=== PATIENT | male | born 1955 | race Caucasian/White ===

== ENCOUNTER → 2016-09-30 | Outpatient (REF) | payer OTHER ==
[~2016-09-30] MED LIST: AMBI12.52 PO; ASPI1TAB PO; ASTE0.15; ATOR40TA75 PO; CENTTAB47 PO; LOSA100T36 PO; MONT10TA2 PO; PROB1TAB PO; XYZA5TAB2 PO
[2016-09-30 18:47] LABS: CALCIUM LEVEL 9.9 MG/DL (8.8-10.2); CREATININE FOR GFR 1.57 MG/DL (0.70-1.30); FREE T4 0.8 NG/DL (0.76-1.46); GLOMERULAR FILTRATION RATE 47.9 (>49); POTASSIUM SERUM 4.6 MEQ/L (3.5-5.1)
== END ==
LOC: M SFHCPLAZ 13:22
PROVIDERS: ATTEND Internal Medicine Infectious Disease
DX: R63.5 Abnormal weight gain (principal); B20 Human immunodeficiency virus [HIV] disease; R76.12 Nonspecific reaction to cell mediated immunity measurement of gamma interferon antigen response without active tuberculosis

== ENCOUNTER → 2016-12-23 | Outpatient (REF) | payer OTHER ==
[2016-12-23 14:00] LABS: ALBUMIN 4.2 GM/DL (3.2-5.2); ALBUMIN/GLOBULIN RATIO 1.4 (1.00-1.93); BILIRUBIN,TOTAL 0.8 MG/DL (0.2-1.0); CALCIUM LEVEL 9.4 MG/DL (8.8-10.2); CREATININE FOR GFR 1.41 MG/DL (0.70-1.30); GLOMERULAR FILTRATION RATE 54.2 (>49); POTASSIUM SERUM 4.5 MEQ/L (3.5-5.1); TOTAL PROTEIN 7.2 GM/DL (6.4-8.2)
[2016-12-25 00:20] LABS: Eosinophils 5 % (Not Estab.); HCT 47.3 % (37.5-51.0); HGB 16.3 g/dL (12.6-17.7); Monocytes 8 % (Not Estab.); Neutrophils 49 % (Not Estab.); WBC 6.3 x10E3/uL (3.4-10.8)
[2016-12-26 13:28] LABS: HIV-1 RNAby PCR <20
[2016-12-26 13:29] LABS: Genotype Assay Not Indicated
== END ==
LOC: M SFHCPLAZ 12:07
PROVIDERS: ATTEND Internal Medicine Infectious Disease
DX: B20 Human immunodeficiency virus [HIV] disease (principal); E78.2 Mixed hyperlipidemia

== ENCOUNTER → 2017-07-29 | Outpatient (REF) | payer OTHER ==
[2017-07-29 16:00] LABS: ALBUMIN 4.3 GM/DL (3.2-5.2); ALBUMIN/GLOBULIN RATIO 1.59 (1.00-1.93); ALKALINE PHOSPHATASE 35 U/L (45-117); ALT/SGPT 43 U/L (12-78); ANION GAP 9 MEQ/L (8-16); AST/SGOT 57 U/L (7-37); BILIRUBIN,TOTAL 0.7 MG/DL (0.2-1.0); BLOOD UREA NITROGEN 23 MG/DL (7-18); CALCIUM LEVEL 9.2 MG/DL (8.8-10.2); CARBON DIOXIDE LEVEL 25 MEQ/L (21-32); CHLORIDE LEVEL 108 MEQ/L (98-107); CHOLESTEROL LEVEL 112 MG/DL (<200); CHOLESTEROL RISK RATIO 2.731 (<5); CREATININE FOR GFR 1.44 MG/DL (0.70-1.30); GLOMERULAR FILTRATION RATE 52.7 (>49); GLUCOSE, FASTING 105 MG/DL (70-100); HDL CHOLESTEROL 41 MG/DL (>40); LDL CHOLESTEROL 47.4 MG/DL (<100); NON-HDL-C 71 MG/DL; POTASSIUM SERUM 4.3 MEQ/L (3.5-5.1); SODIUM LEVEL 142 MEQ/L (136-145); TRIGLYCERIDES LEVEL 118 MG/DL (<150)
[2017-07-29 16:39] LABS: ESTIMATED AVERAGE GLUCOSE 131 MG/DL (60-110); HEMOGLOBIN A1c 6.2 %
[2017-07-29 18:11] LABS: AMORPHOUS SEDIMENT SMALL (NEGATIVE); APPEARANCE, URINE HAZY (CLEAR); BACTERIA, URINE AUTO NEGATIVE (NEGATIVE); BILIRUBIN, URINE AUTO NEGATIVE (NEGATIVE); BLOOD, URINE BLOOD NEGATIVE (NEGATIVE); CALCIUM OXALATE CRYSTALS SMALL; COLOR, URINE YELLOW (YELLOW); GLUCOSE, URINE (UA) AUTO NEGATIVE (NEGATIVE); KETONE, URINE AUTO NEGATIVE (NEGATIVE); LEUKOCYTE ESTERASE, URINE AUTO NEGATIVE (NEGATIVE); MUCUS, URINE SMALL (NEGATIVE); NITRITE, URINE AUTO NEGATIVE (NEGATIVE); PROTEIN, URINE AUTO NEGATIVE (NEGATIVE); RBC, URINE AUTO 0 /HPF (0-3); SPECIFIC GRAVITY URINE AUTO 1.012 (1.002-1.035); SQUAMOUS EPITHELIAL CELL UR AU 0 /HPF (0-6); UROBILINOGEN, URINE AUTO 0.2 mg/dL (0.0-2.0); WBC, URINE AUTO 1 /HPF (0-3)
[2017-07-30 11:06] LABS: HEPATITIS C VIRUS ABY INDEX < 0.0 INDEX (<0.8)
== END ==
LOC: M SFHCPLAZ 13:12
DX: B20 Human immunodeficiency virus [HIV] disease (principal); E78.2 Mixed hyperlipidemia; N18.3 Chronic kidney disease, stage 3 (moderate)
CPT/HCPCS: 80053

== ENCOUNTER → 2018-01-06 | Outpatient (REF) | payer OTHER ==
[2018-01-06 21:50] LABS: ALBUMIN 4.2 GM/DL (3.2-5.2); ALBUMIN/GLOBULIN RATIO 1.45 (1.00-1.93); ALKALINE PHOSPHATASE 39 U/L (45-117); ALT/SGPT 43 U/L (12-78); ANION GAP 9 MEQ/L (8-16); AST/SGOT 31 U/L (7-37); BILIRUBIN,TOTAL 0.9 MG/DL (0.2-1.0); BLOOD UREA NITROGEN 27 MG/DL (7-18); CALCIUM LEVEL 9.3 MG/DL (8.8-10.2); CARBON DIOXIDE LEVEL 28 MEQ/L (21-32); CHLORIDE LEVEL 103 MEQ/L (98-107); CREATININE FOR GFR 1.75 MG/DL (0.70-1.30); GLUCOSE, FASTING 123 MG/DL (70-100); POTASSIUM SERUM 4.4 MEQ/L (3.5-5.1); SODIUM LEVEL 140 MEQ/L (136-145); TOTAL PROTEIN 7.1 GM/DL (6.4-8.2)
[2018-01-06 23:42] LABS: ESTIMATED AVERAGE GLUCOSE 123 MG/DL (60-110); HEMOGLOBIN A1c 5.9 %
[2018-01-10 00:06] LABS: % CD8 Pos Lymph 45.1 % (12.0-35.5); %CD4 Pos Lymphs 33.2 % (30.8-58.5); ABS Eosinophils 0.1 x10E3/uL (0.0-0.4); ABS Lymphs 2.3 x10E3/uL (0.7-3.1); ABS Monocytes 0.4 x10E3/uL (0.1-0.9); ABS Neutophils 3.6 x10E3/uL (1.4-7.0); Abs CD4 Helper 764 /uL (359-1519); Abs CD8 Suppres 1037 /uL (109-897); CD4/CD8 Ratio 0.74 (0.92-3.72); Eosinophils 2 % (Not Estab.); HCT 48.5 % (37.5-51.0); HIV-1 RNA PCR QUANT 2 LC550285 <20 copies/mL (.); Immature Grans 0 % (Not Estab.); Lymphocytes 35 % (Not Estab.); MCH 30.9 pg (26.6-33.0); MCV 94 fL (79-97); Monocytes 6 % (Not Estab.); Neutrophils 56 % (Not Estab.); Platelets 172 x10E3/uL (150-379); RBC 5.17 x10E6/uL (4.14-5.80); RDW 15.1 % (12.3-15.4); WBC 6.5 x10E3/uL (3.4-10.8)
== END ==
LOC: M SFHCPLAZ 13:14
DX: B20 Human immunodeficiency virus [HIV] disease (principal); E78.2 Mixed hyperlipidemia

== ENCOUNTER → 2018-07-30 | Outpatient (REF) | payer OTHER ==
[~2018-07-30] MED LIST changes: -ASPI1TAB PO; +ASPI81TA26 PO; -LOSA100T36 PO; +LOSA100T50 PO
[2018-07-30 16:56] LABS: ALBUMIN 4.5 GM/DL (3.2-5.2); BILIRUBIN,TOTAL 0.7 MG/DL (0.2-1.0); CALCIUM LEVEL 9.7 MG/DL (8.8-10.2); CHOLESTEROL RISK RATIO 3.476 (<5); POTASSIUM SERUM 4.3 MEQ/L (3.5-5.1); TOTAL PROTEIN 7.1 GM/DL (6.4-8.2)
[2018-07-30 17:18] LABS: APPEARANCE, URINE CLOUDY (CLEAR); BACTERIA, URINE AUTO NEGATIVE (NEGATIVE); BILIRUBIN, URINE AUTO NEGATIVE (NEGATIVE); BLOOD, URINE BLOOD NEGATIVE (NEGATIVE); COLOR, URINE STRAW (YELLOW); GLUCOSE, URINE (UA) AUTO NEGATIVE (NEGATIVE); KETONE, URINE AUTO NEGATIVE (NEGATIVE); LEUKOCYTE ESTERASE, URINE AUTO NEGATIVE (NEGATIVE); NITRITE, URINE AUTO NEGATIVE (NEGATIVE); PROTEIN, URINE AUTO NEGATIVE (NEGATIVE); RBC, URINE AUTO 0 /HPF (0-3); SPECIFIC GRAVITY URINE AUTO 1.011 (1.002-1.035); SQUAMOUS EPITHELIAL CELL UR AU 0 /HPF (0-6); URIC ACID CRYSTALS LARGE; UROBILINOGEN, URINE AUTO 0.2 mg/dL (0.0-2.0); WBC, URINE AUTO 1 /HPF (0-3)
[2018-07-30 17:23] LABS: HEMOGLOBIN A1c 5.7 %
[2018-08-04 00:06] LABS: % CD8 Pos Lymph 46.6 % (12.0-35.5); %CD4 Pos Lymphs 30.6 % (30.8-58.5); ABS Eosinophils 0.2 x10E3/uL (0.0-0.4); ABS Lymphs 2.2 x10E3/uL (0.7-3.1); ABS Monocytes 0.5 x10E3/uL (0.1-0.9); ABS Neutophils 4.4 x10E3/uL (1.4-7.0); Abs CD4 Helper 673 /uL (359-1519); Abs CD8 Suppres 1025 /uL (109-897); CD4/CD8 Ratio 0.66 (0.92-3.72); Eosinophils 3 % (Not Estab.); HCT 48.7 % (37.5-51.0); HGB 15.9 g/dL (13.0-17.7); HIV-1 RNA PCR QUANT 2 LC550285 <20 copies/mL (.); Immature Grans 0 % (Not Estab.); Lymphocytes 30 % (Not Estab.); MCH 31.1 pg (26.6-33.0); MCHC 32.6 g/dL (31.5-35.7); MCV 95 fL (79-97); Monocytes 7 % (Not Estab.); Neutrophils 60 % (Not Estab.); Platelets 181 x10E3/uL (150-379); RBC 5.11 x10E6/uL (4.14-5.80); RDW 14.3 % (12.3-15.4); WBC 7.3 x10E3/uL (3.4-10.8)
== END ==
LOC: M SFHCPLAZ 11:35
PROVIDERS: ATTEND Internal Medicine Infectious Disease
DX: B20 Human immunodeficiency virus [HIV] disease (principal); E78.2 Mixed hyperlipidemia; R73.02 Impaired glucose tolerance (oral); Z12.5 Encounter for screening for malignant neoplasm of prostate
CPT/HCPCS: 80053; 80061; 81001; 83036; 86360; 87536; G0103

== ENCOUNTER → 2018-12-31 | Outpatient (REF) | payer OTHER ==
[2018-12-31 16:25] LABS: ALBUMIN 4.1 GM/DL (3.2-5.2); BILIRUBIN,TOTAL 0.7 MG/DL (0.2-1.0); CALCIUM LEVEL 9.3 MG/DL (8.8-10.2); CREATININE FOR GFR 1.64 MG/DL (0.70-1.30); GLOMERULAR FILTRATION RATE 45.1 (>49); POTASSIUM SERUM 4.4 MEQ/L (3.5-5.1); TOTAL PROTEIN 6.8 GM/DL (6.4-8.2)
[2018-12-31 16:50] LABS: HEMOGLOBIN A1c 6.1 %
[2019-01-05 00:10] LABS: % CD8 Pos Lymph 47.9 % (12.0-35.5); ABS Eosinophils 0.1 x10E3/uL (0.0-0.4); ABS Monocytes 0.3 x10E3/uL (0.1-0.9); ABS Neutophils 3.5 x10E3/uL (1.4-7.0); Abs CD4 Helper 640 /uL (359-1519); Abs CD8 Suppres 958 /uL (109-897); CD4/CD8 Ratio 0.67 (0.92-3.72); Eosinophils 2 % (Not Estab.); HCT 49.2 % (37.5-51.0); HGB 16.1 g/dL (13.0-17.7); HIV-1 RNA PCR QUANT 2 LC550285 <20 copies/mL (.); Immature Grans 0 % (Not Estab.); Lymphocytes 33 % (Not Estab.); MCH 31.1 pg (26.6-33.0); MCHC 32.7 g/dL (31.5-35.7); MCV 95 fL (79-97); Monocytes 5 % (Not Estab.); Neutrophils 59 % (Not Estab.); Platelets 161 x10E3/uL (150-450); RBC 5.18 x10E6/uL (4.14-5.80); RDW 14.7 % (12.3-15.4); WBC 5.9 x10E3/uL (3.4-10.8)
== END ==
LOC: M SFHCPLAZ 12:29
PROVIDERS: ATTEND Internal Medicine Infectious Disease
DX: B20 Human immunodeficiency virus [HIV] disease (principal); R73.02 Impaired glucose tolerance (oral)

== ENCOUNTER → 2019-09-15 | Outpatient (CLI) | payer OTHER ==
[~2019-09-15] MED LIST changes: -MONT10TA2 PO; +MONT10TA4 PO
[2019-09-15 13:03] LABS: HEMATOCRIT 49.9 % (42.0-52.0); HEMOGLOBIN 16.6 g/dl (13.5-17.5); MEAN CORPUSCULAR HGB CONC 33.3 g/dl (32.0-36.5); MEAN CORPUSCULAR VOLUME 93.3 fl (80.0-96.0); PLATELET COUNT, AUTOMATED 154 10^3/uL (150-450); RED BLOOD COUNT 5.35 10^6/uL (4.30-6.10); WHITE BLOOD COUNT 5.4 10^3/uL (4.0-10.0)
[2019-09-15 13:11] LABS: APPEARANCE, URINE CLEAR (CLEAR); BACTERIA, URINE AUTO NEGATIVE (NEGATIVE); BILIRUBIN, URINE AUTO NEGATIVE (NEGATIVE); BLOOD, URINE BLOOD NEGATIVE (NEGATIVE); COLOR, URINE YELLOW (YELLOW); GLUCOSE, URINE (UA) AUTO NEGATIVE (NEGATIVE); KETONE, URINE AUTO NEGATIVE (NEGATIVE); LEUKOCYTE ESTERASE, URINE AUTO NEGATIVE (NEGATIVE); MUCUS, URINE SMALL (NEGATIVE); NITRITE, URINE AUTO NEGATIVE (NEGATIVE); PROTEIN, URINE AUTO NEGATIVE (NEGATIVE); RBC, URINE AUTO 1 /HPF (0-3); SPECIFIC GRAVITY URINE AUTO 1.011 (1.002-1.035); SQUAMOUS EPITHELIAL CELL UR AU 0 /HPF (0-6); UROBILINOGEN, URINE AUTO 0.2 mg/dL (0.0-2.0); WBC, URINE AUTO 1 /HPF (0-3)
[2019-09-15 13:23] LABS: HEMOGLOBIN A1c 6.3 %
[2019-09-15 13:26] LABS: CALCIUM LEVEL 9.3 MG/DL (8.8-10.2); CREATININE FOR GFR 1.47 MG/DL (0.70-1.30); CREATININE,RANDOM URINE 79.9 MG/DL; GLOMERULAR FILTRATION RATE 51.2 (>49); POTASSIUM SERUM 4.2 MEQ/L (3.5-5.1); TOTAL PROTEIN,RANDOM URINE 6.1 MG/DL (0.0-12.0)
[2019-09-15 13:32] LABS: ALBUMIN 4.2 GM/DL (3.2-5.2); BILIRUBIN,TOTAL 0.9 MG/DL (0.2-1.0); CALCIUM LEVEL 9.6 MG/DL (8.8-10.2); CREATININE FOR GFR 1.53 MG/DL (0.70-1.30); GLOMERULAR FILTRATION RATE 48.9 (>49); POTASSIUM SERUM 4.3 MEQ/L (3.5-5.1); TOTAL PROTEIN 7.3 GM/DL (6.4-8.2)
[2019-09-21 15:14] LABS: % CD8 Pos Lymph 45.2 % (12.0-35.5); %CD4 Pos Lymphs 33.3 % (30.8-58.5); ABS Eosinophils 0.2 x10E3/uL (0.0-0.4); ABS Lymphs 1.9 x10E3/uL (0.7-3.1); ABS Monocytes 0.5 x10E3/uL (0.1-0.9); ABS Neutophils 2.8 x10E3/uL (1.4-7.0); Abs CD4 Helper 633 /uL (359-1519); Abs CD8 Suppres 859 /uL (109-897); CD4/CD8 Ratio 0.74 (0.92-3.72); Eosinophils 3 % (Not Estab.); HCT 48.7 % (37.5-51.0); HGB 16.7 g/dL (13.0-17.7); HIV-1 RNA PCR QUANT 2 LC550285 <20 copies/mL (.); Immature Grans 0 % (Not Estab.); Lymphocytes 35 % (Not Estab.); MCH 31.3 pg (26.6-33.0); MCHC 34.3 g/dL (31.5-35.7); MCV 91 fL (79-97); Monocytes 9 % (Not Estab.); Neutrophils 52 % (Not Estab.); Platelets 159 x10E3/uL (150-450); RBC 5.34 x10E6/uL (4.14-5.80); RDW 13.7 % (11.6-15.4); WBC 5.4 x10E3/uL (3.4-10.8)
== END ==
LOC: M PLALAB 10:21
PROVIDERS: ATTEND Internal Medicine Nephrology
DX: N18.3 Chronic kidney disease, stage 3 (moderate) (principal); B20 Human immunodeficiency virus [HIV] disease; R73.02 Impaired glucose tolerance (oral)

== ENCOUNTER 2020-11-19 10:58 | Emergency (ER) | payer MEDICARE, OTHER ==
[~2020-11-19] VITALS: Ht 175.3 cm; Wt 112.9 kg
[~2020-11-19 10:58] MED LIST changes: +MONT10TA10 PO; -MONT10TA4 PO
[2020-11-19] MEDS ORDERED: BACIOIN23 OP (11:54)
[2020-11-19 13:02] VITALS: BP 142/78
== END 2020-11-19 16:24 | disposition home or self-care (01) ==
LOC: M ED 10:58
DX: U07.1 COVID-19 (principal); H10.9 Unspecified conjunctivitis; I10 Essential (primary) hypertension; E78.9 Disorder of lipoprotein metabolism, unspecified; E66.9 Obesity, unspecified; B20 Human immunodeficiency virus [HIV] disease; Z79.899 Other long term (current) drug therapy; Z79.82 Long term (current) use of aspirin; Z88.2 Allergy status to sulfonamides; Z88.5 Allergy status to narcotic agent; Z88.8 Allergy status to other drugs, medicaments and biological substances; Z87.891 Personal history of nicotine dependence

== ENCOUNTER 2020-11-19 16:18 | Outpatient (CLI) | payer OTHER ==
[~2020-11-19] VITALS: Ht 175.3 cm; Wt 111.0 kg
[~2020-11-19 16:18] MED LIST changes: +ALBUTEROL 90 MCG/ACT 8GM HFA INHALER INH PRN; +ALBUTEROL SULFATE 2.5 MG/0.5 ML INH NEB SOLN INH PRN; +BACIOIN23 OP; +CASIRIVIMAB/IMDEVIMAB 1,200 MG in NS 250 ML IV ONE; +EPINEPHrine INJ 1 MG/ML 1ML AMP IM PRN; +NS 1,000 ML IV SCH; +diphenhydrAMINE 50MG/ML VIAL (J1200) IV PRN; +methylPREDNISolone 125MG 2ML VIAL IV PRN
[2020-11-19 16:33] VITALS: BP 146/78
[2020-11-19 17:05] VITALS: BP 158/77
[2020-11-19 17:55] VITALS: BP 162/76
[2020-11-19 18:53] VITALS: BP 166/78
== END 2020-11-19 19:11 | disposition home or self-care (01) ==
LOC: M OPCLI4 16:18 → M 4MAIN 16:18 → M OPCLI4 19:11
PROVIDERS: ATTEND Family Medicine
DX: U07.1 COVID-19 (principal); Z88.8 Allergy status to other drugs, medicaments and biological substances; Z88.6 Allergy status to analgesic agent

== ENCOUNTER → 2020-12-11 | Outpatient (CLI) | payer OTHER, MEDICARE ==
[~2020-12-11] MED LIST changes: -ALBUTEROL 90 MCG/ACT 8GM HFA INHALER INH PRN; -ALBUTEROL SULFATE 2.5 MG/0.5 ML INH NEB SOLN INH PRN; -CASIRIVIMAB/IMDEVIMAB 1,200 MG in NS 250 ML IV ONE; -EPINEPHrine INJ 1 MG/ML 1ML AMP IM PRN; -NS 1,000 ML IV SCH; -diphenhydrAMINE 50MG/ML VIAL (J1200) IV PRN; -methylPREDNISolone 125MG 2ML VIAL IV PRN
[2020-12-11 13:19] LABS: APPEARANCE, URINE CLEAR (CLEAR); BACTERIA, URINE AUTO NEGATIVE (NEGATIVE); BILIRUBIN, URINE AUTO NEGATIVE (NEGATIVE); BLOOD, URINE BLOOD NEGATIVE (NEGATIVE); COLOR, URINE YELLOW (YELLOW); GLUCOSE, URINE (UA) AUTO NEGATIVE (NEGATIVE); KETONE, URINE AUTO NEGATIVE (NEGATIVE); LEUKOCYTE ESTERASE, URINE AUTO NEGATIVE (NEGATIVE); MUCUS, URINE SMALL (NEGATIVE); NITRITE, URINE AUTO NEGATIVE (NEGATIVE); PROTEIN, URINE AUTO NEGATIVE (NEGATIVE); RBC, URINE AUTO 0 /HPF (0-3); SPECIFIC GRAVITY URINE AUTO 1.016 (1.002-1.035); SQUAMOUS EPITHELIAL CELL UR AU 0 /HPF (0-6); UROBILINOGEN, URINE AUTO 0.2 mg/dL (0.0-2.0); WBC, URINE AUTO 1 /HPF (0-3)
[2020-12-11 13:43] LABS: HEMOGLOBIN A1c 5.7 %
[2020-12-11 13:58] LABS: ALBUMIN 3.9 GM/DL (3.2-5.2); BILIRUBIN,TOTAL 0.9 MG/DL (0.2-1.0); CALCIUM LEVEL 9.5 MG/DL (8.8-10.2); CHOLESTEROL RISK RATIO 2.936 (<5); CREATININE FOR GFR 1.58 MG/DL (0.70-1.30); GLOMERULAR FILTRATION RATE 46.9 (>49); POTASSIUM SERUM 4.4 MEQ/L (3.5-5.1)
[2020-12-12 23:07] LABS: % CD8 Pos Lymph 46.5 % (12.0-35.5); ABS Eosinophils 0.2 x10E3/uL (0.0-0.4); ABS Lymphs 2.1 x10E3/uL (0.7-3.1); ABS Monocytes 0.5 x10E3/uL (0.1-0.9); ABS Neutophils 2.3 x10E3/uL (1.4-7.0); Abs CD4 Helper 714 /uL (359-1519); Abs CD8 Suppres 977 /uL (109-897); CD4/CD8 Ratio 0.73 (0.92-3.72); Eosinophils 3 % (Not Estab.); HCT 47.9 % (37.5-51.0); HGB 16.2 g/dL (13.0-17.7); HIV-1 RNA PCR QUANT 2 LC550285 <20 copies/mL (.); Immature Grans 0 % (Not Estab.); Lymphocytes 41 % (Not Estab.); MCH 30.9 pg (26.6-33.0); MCHC 33.8 g/dL (31.5-35.7); MCV 91 fL (79-97); Monocytes 9 % (Not Estab.); Neutrophils 46 % (Not Estab.); Platelets 149 x10E3/uL (150-450); RBC 5.25 x10E6/uL (4.14-5.80); RDW 13.8 % (11.6-15.4); WBC 5.1 x10E3/uL (3.4-10.8)
== END ==
LOC: M PLALAB 11:45
PROVIDERS: ATTEND Internal Medicine Infectious Disease
DX: B20 Human immunodeficiency virus [HIV] disease (principal); Z12.5 Encounter for screening for malignant neoplasm of prostate
CPT/HCPCS: 36415; 80053; 80061; 81001; 83036; 86360; 87536; G0103

== ENCOUNTER → 2021-11-12 | Outpatient (CLI) | payer MEDICARE, OTHER ==
[~2021-11-12] MED LIST changes: +AZEL1SPR3; +DESC1TAB PO; +LEVOTAB10 PO; +LISI10TA22 PO; +LOSA100T45 PO; -LOSA100T50 PO; -MONT10TA10 PO; +MONT10TA97 PO; +TIVI1TAB PO; +ZOLP12.518 PO
[2021-11-12 17:59] LABS: CREATININE FOR GFR 1.61 MG/DL (0.70-1.30); GLOMERULAR FILTRATION RATE 45.8 (>49); POTASSIUM SERUM 4.3 MEQ/L (3.5-5.1)
[2021-11-12 18:00] LABS: ALBUMIN 3.9 GM/DL (3.2-5.2); BILIRUBIN,TOTAL 0.6 MG/DL (0.2-1.0); CALCIUM LEVEL 9.1 MG/DL (8.8-10.2); CHOLESTEROL RISK RATIO 2.84 (<5); THYROID STIMULATING HORMONE 2.02 uIU/ML (0.358-3.740); URIC ACID 8.5 MG/DL (3.5-7.2)
[2021-11-12 20:44] LABS: HEMOGLOBIN A1c 5.7 %
[2021-11-15 06:08] LABS: %CD4 Pos Lymphs 35.8 % (30.8-58.5); ABS Eosinophils 0.2 x10E3/uL (0.0-0.4); ABS Lymphs 1.7 x10E3/uL (0.7-3.1); ABS Monocytes 0.5 x10E3/uL (0.1-0.9); ABS Neutophils 4.7 x10E3/uL (1.4-7.0); Abs CD4 Helper 609 /uL (359-1519); Abs CD8 Suppres 714 /uL (109-897); CD4/CD8 Ratio 0.85 (0.92-3.72); Eosinophils 2 % (Not Estab.); HCT 51.6 % (37.5-51.0); HGB 16.9 g/dL (13.0-17.7); HIV-1 RNA PCR QUANT 2 LC550285 <20 copies/mL (.); Immature Grans 0 % (Not Estab.); Lymphocytes 24 % (Not Estab.); MCH 31.4 pg (26.6-33.0); MCHC 32.8 g/dL (31.5-35.7); MCV 96 fL (79-97); Monocytes 7 % (Not Estab.); Neutrophils 67 % (Not Estab.); Platelets 167 x10E3/uL (150-450); RBC 5.38 x10E6/uL (4.14-5.80); WBC 7.1 x10E3/uL (3.4-10.8)
== END ==
LOC: M PLALAB 13:54
PROVIDERS: ATTEND Internal Medicine Infectious Disease
DX: R73.02 Impaired glucose tolerance (oral) (principal); B20 Human immunodeficiency virus [HIV] disease; E78.2 Mixed hyperlipidemia; I10 Essential (primary) hypertension

== ENCOUNTER 2021-11-26 09:42 | Day surgery (SDC) | payer MEDICARE ==
[~2021-11-26] VITALS: Ht 175.3 cm; Wt 110.9 kg
[~2021-11-26 09:42] MED LIST changes: +ALLO10TA PO; +LIDOCAINE 2% 100MG/5ML SDV (FOR ANES.) As Ordered ONE; +NS 1,000 ML IV ONE; +propofoL 200 MG/20 ML VIAL As Ordered ONE
[2021-11-26 11:33] VITALS: BP 136/68
== END 2021-11-26 11:53 | disposition home or self-care (01) ==
LOC: M OPP 09:42
PROVIDERS: ATTEND Internal Medicine Gastroenterology
DX: Z12.11 Encounter for screening for malignant neoplasm of colon (principal); Z86.010 Personal history of colon polyps; K63.5 Polyp of colon; K64.0 First degree hemorrhoids; I12.9 Hypertensive chronic kidney disease with stage 1 through stage 4 chronic kidney disease, or unspecified chronic kidney disease; E78.00 Pure hypercholesterolemia, unspecified; N18.2 Chronic kidney disease, stage 2 (mild); B20 Human immunodeficiency virus [HIV] disease; Z22.7 Latent tuberculosis; Z79.02 Long term (current) use of antithrombotics/antiplatelets; Z79.82 Long term (current) use of aspirin; Z79.899 Other long term (current) drug therapy; Z88.1 Allergy status to other antibiotic agents; Z88.2 Allergy status to sulfonamides; Z88.5 Allergy status to narcotic agent; Z88.8 Allergy status to other drugs, medicaments and biological substances

== ENCOUNTER → 2022-08-05 | Outpatient (CLI) | payer MEDICARE, OTHER ==
[~2022-08-05] MED LIST changes: -LIDOCAINE 2% 100MG/5ML SDV (FOR ANES.) As Ordered ONE; -LOSA100T45 PO; +LOSA100T46 PO; -NS 1,000 ML IV ONE; -propofoL 200 MG/20 ML VIAL As Ordered ONE
[2022-08-05 13:27] LABS: HEMOGLOBIN A1c 5.7 % (4.0-6.0)
[2022-08-05 13:31] LABS: ALBUMIN 3.9 G/DL (3.2-5.2); BILIRUBIN,TOTAL 0.7 MG/DL (0.3-1.2); CALCIUM LEVEL 9.7 MG/DL (8.3-10.6); CHOLESTEROL RISK RATIO 2.45 (<5); CREATININE FOR GFR 1.52 MG/DL (0.70-1.30); GLOMERULAR FILTRATION RATE 48.8 (>49); HDL CHOLESTEROL 47.7 MG/DL (>40); LDL CHOLESTEROL 33.5 MG/DL (<100); NON-HDL-C 69.3 MG/DL; POTASSIUM SERUM 4.3 MMOL/L (3.5-5.1); TOTAL PROTEIN 6.5 G/DL (5.7-8.2)
[2022-08-06 18:10] LABS: % CD8 Pos Lymph 42.9 % (12.0-35.5); %CD4 Pos Lymphs 38.4 % (30.8-58.5); ABS Basophils 0.1 x10E3/uL (0.0-0.2); ABS Eosinophils 0.2 x10E3/uL (0.0-0.4); ABS Lymphs 2.7 x10E3/uL (0.7-3.1); ABS Monocytes 0.6 x10E3/uL (0.1-0.9); ABS Neutophils 2.9 x10E3/uL (1.4-7.0); Abs CD4 Helper 1037 /uL (359-1519); Abs CD8 Suppres 1158 /uL (109-897); Eosinophils 4 % (Not Estab.); HCT 49.1 % (37.5-51.0); HGB 16.9 g/dL (13.0-17.7); HIV-1 RNA PCR QUANT 2 LC550285 80 copies/mL (.); HIV-1 RNA PCR QUANT 3 LC550285 1.903 (.); Immature Grans 0 % (Not Estab.); Lymphocytes 42 % (Not Estab.); MCH 31.6 pg (26.6-33.0); MCHC 34.4 g/dL (31.5-35.7); MCV 92 fL (79-97); Monocytes 9 % (Not Estab.); Neutrophils 44 % (Not Estab.); Platelets 160 x10E3/uL (150-450); RBC 5.34 x10E6/uL (4.14-5.80); RDW 13.7 % (11.6-15.4); WBC 6.5 x10E3/uL (3.4-10.8)
== END ==
LOC: M PLALAB 11:45
PROVIDERS: ATTEND Internal Medicine Infectious Disease
DX: B20 Human immunodeficiency virus [HIV] disease (principal)

== ENCOUNTER → 2022-09-18 | Outpatient (CLI) | payer MEDICARE, OTHER | LOC: M SOG 10:51 | PROVIDERS: ATTEND Orthopaedic Surgery | DX: M16.0 Bilateral primary osteoarthritis of hip (principal) ==

== ENCOUNTER → 2022-12-30 | Outpatient (CLI) | payer OTHER ==
[2022-12-30 17:50] LABS: HEMOGLOBIN A1c 5.6 % (4.0-6.0)
[2022-12-30 17:51] LABS: ALBUMIN 4.2 G/DL (3.2-5.2); BILIRUBIN,TOTAL 0.7 MG/DL (0.3-1.2); CALCIUM LEVEL 9.6 MG/DL (8.3-10.6); CHOLESTEROL RISK RATIO 2.47 (<5); CREATININE FOR GFR 1.43 MG/DL (0.70-1.30); GLOMERULAR FILTRATION RATE 52.2 (>49); HDL CHOLESTEROL 50.5 MG/DL (>40); LDL CHOLESTEROL 51.3 MG/DL (<100); NON-HDL-C 74.5 MG/DL; POTASSIUM SERUM 4.4 MMOL/L (3.5-5.1); TOTAL PROTEIN 6.8 G/DL (5.7-8.2)
[2023-01-02 06:08] LABS: %CD4 Pos Lymphs 38.4 % (30.8-58.5); ABS Basophils 0.1 x10E3/uL (0.0-0.2); ABS Eosinophils 0.1 x10E3/uL (0.0-0.4); ABS Lymphs 1.8 x10E3/uL (0.7-3.1); ABS Monocytes 0.4 x10E3/uL (0.1-0.9); ABS Neutophils 3.1 x10E3/uL (1.4-7.0); Abs CD4 Helper 691 /uL (359-1519); Abs CD8 Suppres 756 /uL (109-897); CD4/CD8 Ratio 0.91 (0.92-3.72); Eosinophils 2 % (Not Estab.); HCT 50.5 % (37.5-51.0); HGB 16.7 g/dL (13.0-17.7); HIV-1 RNA PCR QUANT 2 LC550285 140 copies/mL (.); HIV-1 RNA PCR QUANT 3 LC550285 2.146 (.); Immature Grans 0 % (Not Estab.); Lymphocytes 33 % (Not Estab.); MCH 31.5 pg (26.6-33.0); MCHC 33.1 g/dL (31.5-35.7); MCV 95 fL (79-97); Monocytes 8 % (Not Estab.); Neutrophils 56 % (Not Estab.); Platelets 155 x10E3/uL (150-450); RBC 5.31 x10E6/uL (4.14-5.80); RDW 14.1 % (11.6-15.4); WBC 5.4 x10E3/uL (3.4-10.8)
== END ==
LOC: M PLALAB 13:12
PROVIDERS: ATTEND Internal Medicine Infectious Disease
DX: B20 Human immunodeficiency virus [HIV] disease (principal); E78.2 Mixed hyperlipidemia; R73.02 Impaired glucose tolerance (oral)

== ENCOUNTER → 2023-07-28 | Outpatient (CLI) | payer OTHER ==
[~2023-07-28] MED LIST changes: -ZOLP12.518 PO; +ZOLP12.535 PO
[2023-07-28 14:56] LABS: APPEARANCE, URINE CLEAR (CLEAR); BACTERIA, URINE AUTO NEGATIVE (NEGATIVE); BILIRUBIN, URINE AUTO NEGATIVE (NEGATIVE); BLOOD, URINE BLOOD NEGATIVE (NEGATIVE); COLOR, URINE YELLOW (YELLOW); GLUCOSE, URINE (UA) AUTO NEGATIVE (NEGATIVE); KETONE, URINE AUTO NEGATIVE (NEGATIVE); LEUKOCYTE ESTERASE, URINE AUTO NEGATIVE (NEGATIVE); NITRITE, URINE AUTO NEGATIVE (NEGATIVE); PROTEIN, URINE AUTO NEGATIVE (NEGATIVE); RBC, URINE AUTO 1 /HPF (0-3); SPECIFIC GRAVITY URINE AUTO 1.019 (1.002-1.035); SQUAMOUS EPITHELIAL CELL UR AU 0 /HPF (0-6); UROBILINOGEN, URINE AUTO 0.2 mg/dL (0.0-2.0); WBC, URINE AUTO 1 /HPF (0-3)
[2023-07-28 15:16] LABS: CALCIUM LEVEL 9.6 MG/DL (8.3-10.6); CHOLESTEROL RISK RATIO 3.1 (<5); CREATININE FOR GFR 1.68 MG/DL (0.70-1.30); GLOMERULAR FILTRATION RATE 43.3 (>49); LDL CHOLESTEROL 68.2 MG/DL (<100); POTASSIUM SERUM 4.4 MMOL/L (3.5-5.1); TOTAL PROTEIN 6.7 G/DL (5.7-8.2)
[2023-07-28 15:30] LABS: HEMOGLOBIN A1c 5.5 % (4.0-6.0)
[2023-07-29 13:27] LABS: PSA SCREENING 0.37 NG/ML (< 4.00)
[2023-07-29 18:07] LABS: %CD4 Pos Lymphs 36.1 % (30.8-58.5); ABS Eosinophils 0.2 x10E3/uL (0.0-0.4); ABS Lymphs 2.1 x10E3/uL (0.7-3.1); ABS Monocytes 0.4 x10E3/uL (0.1-0.9); Abs CD4 Helper 758 /uL (359-1519); Abs CD8 Suppres 798 /uL (109-897); CD4/CD8 Ratio 0.95 (0.92-3.72); Eosinophils 3 % (Not Estab.); HCT 50.6 % (37.5-51.0); HGB 17.2 g/dL (13.0-17.7); HIV-1 RNA PCR QUANT 2 LC550285 <20 copies/mL (.); Immature Grans 0 % (Not Estab.); Lymphocytes 36 % (Not Estab.); MCH 31.9 pg (26.6-33.0); MCV 94 fL (79-97); Monocytes 8 % (Not Estab.); Neutrophils 52 % (Not Estab.); Platelets 164 x10E3/uL (150-450); RDW 13.4 % (11.6-15.4); WBC 5.7 x10E3/uL (3.4-10.8)
== END ==
LOC: M PLALAB 13:43
PROVIDERS: ATTEND Internal Medicine Infectious Disease
DX: B20 Human immunodeficiency virus [HIV] disease (principal); E78.2 Mixed hyperlipidemia; R73.02 Impaired glucose tolerance (oral); Z12.5 Encounter for screening for malignant neoplasm of prostate
CPT/HCPCS: 36415; 80053; 80061; 81001; 83036; 86360; 87536; G0103

== ENCOUNTER → 2023-12-22 | Outpatient (CLI) | payer OTHER, MEDICARE ==
[2023-12-22 15:47] LABS: BILIRUBIN,TOTAL 0.8 MG/DL (0.3-1.2); CALCIUM LEVEL 9.9 MG/DL (8.3-10.6); CREATININE FOR GFR 1.34 MG/DL (0.70-1.30); GLOMERULAR FILTRATION RATE 56.3 (>49); POTASSIUM SERUM 4.5 MMOL/L (3.5-5.1); TOTAL PROTEIN 6.8 G/DL (5.7-8.2)
[2023-12-23 12:09] LABS: % CD4+ LYMPHS 40.1 % (30.8-58.5); ABSOLUTE CD4 HELPER 842 /uL (359-1519); BASOPHILS 1 % (Not Estab.); EOSINOPHILS 3 % (Not Estab.); EOSINOPHILS ABSOLUTE 0.1 x10E3/uL (0.0-0.4); HGB 16.6 g/dL (13.0-17.7); LYMPHOCYTES 40 % (Not Estab.); LYMPHOCYTES ABSOLUTE 2.1 x10E3/uL (0.7-3.1); MCH 30.7 pg (26.6-33.0); MCHC 33.2 g/dL (31.5-35.7); MCV 93 fL (79-97); MONOCYTES 9 % (Not Estab.); MONOCYTES ABSOLUTE 0.4 x10E3/uL (0.1-0.9); NEUTROPHILS 47 % (Not Estab.); NEUTROPHILS ABSOLUTE 2.5 x10E3/uL (1.4-7.0); PLT 169 x10E3/uL (150-450); RDW 13.7 % (11.6-15.4); WBC 5.2 x10E3/uL (3.4-10.8)
[2023-12-25 15:08] LABS: HIV-1 RNA PCR QUANT 2 <20 DETECTED copies/mL (NOT DETECTED); HIV-1 RNA PCR QUANT 3 <1.30 DETECTED (NOT DETECTED)
== END ==
LOC: M PLALAB 12:40
PROVIDERS: ATTEND Internal Medicine Infectious Disease
DX: B20 Human immunodeficiency virus [HIV] disease (principal)

== ENCOUNTER → 2024-08-05 | Outpatient (CLI) | payer OTHER ==
[~2024-08-05] MED LIST changes: -AMBI12.52 PO; +ZOLP12.561 PO
[2024-08-05 16:27] LABS: APPEARANCE, URINE CLEAR (CLEAR); BACTERIA, URINE AUTO NEGATIVE (NEGATIVE); BILIRUBIN, URINE AUTO NEGATIVE (NEGATIVE); BLOOD, URINE BLOOD NEGATIVE (NEGATIVE); COLOR, URINE YELLOW (YELLOW); GLUCOSE, URINE (UA) AUTO NEGATIVE (NEGATIVE); KETONE, URINE AUTO NEGATIVE (NEGATIVE); LEUKOCYTE ESTERASE, URINE AUTO NEGATIVE (NEGATIVE); NITRITE, URINE AUTO NEGATIVE (NEGATIVE); PROTEIN, URINE AUTO NEGATIVE (NEGATIVE); RBC, URINE AUTO 0 /HPF (0-3); SPECIFIC GRAVITY URINE AUTO 1.017 (1.002-1.035); SQUAMOUS EPITHELIAL CELL UR AU 0 /HPF (0-6); UROBILINOGEN, URINE AUTO 0.2 mg/dL (0.0-2.0); WBC, URINE AUTO 2 /HPF (0-3)
[2024-08-05 16:32] LABS: HEMOGLOBIN A1c 5.6 % (4.0-6.0)
[2024-08-05 16:42] LABS: PSA SCREENING 0.31 NG/ML (< 4.00)
[2024-08-05 16:44] LABS: ALBUMIN 4.1 G/DL (3.2-5.2); BILIRUBIN,TOTAL 0.6 MG/DL (0.3-1.2); CALCIUM LEVEL 9.6 MG/DL (8.3-10.6); CHOLESTEROL RISK RATIO 2.74 (<5); CREATININE FOR GFR 1.41 MG/DL (0.70-1.30); GLOMERULAR FILTRATION RATE 53.6 (>42); HDL CHOLESTEROL 48.8 MG/DL (>40); LDL CHOLESTEROL 64.6 MG/DL (<100); NON-HDL-C 85.2 MG/DL; POTASSIUM SERUM 4.4 MMOL/L (3.5-5.1); TOTAL PROTEIN 6.7 G/DL (5.7-8.2)
[2024-08-08 17:37] LABS: % CD4 38 % (30-61); %CD8 40 % (12-42); ABSOLUTE CD4 CELLS 981 cells/uL (490-1740); ABSOLUTE CD8 CELLS 1026 cells/uL (180-1170); ABSOLUTE LYMPHOCYTES 2550 cells/uL (850-3900); CD4 CD8 RATIO 0.95 (0.86-5.00)
== END ==
LOC: M PLALAB 12:22
PROVIDERS: ATTEND Internal Medicine Infectious Disease
DX: B20 Human immunodeficiency virus [HIV] disease (principal); E78.2 Mixed hyperlipidemia; R73.02 Impaired glucose tolerance (oral); Z12.5 Encounter for screening for malignant neoplasm of prostate
CPT/HCPCS: 36415; 80053; 80061; 81001; 83036; 86360; 87536; G0103

== ENCOUNTER → 2025-01-27 | Outpatient (CLI) | payer OTHER ==
[2025-01-27 15:45] LABS: ALT/SGPT 38.0 U/L (7.0-40); AST/SGOT 30.0 U/L (<34); CALCIUM LEVEL 9.3 MG/DL (8.3-10.6); CARBON DIOXIDE LEVEL 30.0 MMOL/L (20-31); CHLORIDE LEVEL 105.0 MMOL/L (98-107); CREATININE FOR GFR 1.54 MG/DL (0.70-1.30); GLOMERULAR FILTRATION RATE 47.9 (>42); POTASSIUM SERUM 4.5 MMOL/L (3.5-5.1); SODIUM LEVEL 145.0 MMOL/L (136-145)
[2025-01-27 16:29] LABS: ESTIMATED AVERAGE GLUCOSE 123.0 MG/DL (60-110)
[2025-01-29 16:37] LABS: % CD4 36 % (30-61); %CD8 38 % (12-42); ABSOLUTE CD4 CELLS 784 cells/uL (490-1740); ABSOLUTE CD8 CELLS 843 cells/uL (180-1170); ABSOLUTE LYMPHOCYTES 2205 cells/uL (850-3900); CD4 CD8 RATIO 0.93 (0.86-5.00)
[2025-01-30 21:44] LABS: HIV-1 RNA PCR QUANT 2 NOT DETECTED copies/mL (NOT DETECTED); HIV-1 RNA PCR QUANT 3 NOT DETECTED (NOT DETECTED)
== END ==
LOC: M PLALAB 13:13
PROVIDERS: ATTEND Internal Medicine Infectious Disease
DX: B20 Human immunodeficiency virus [HIV] disease (principal); R73.02 Impaired glucose tolerance (oral)